=== PATIENT | male | born 2000 | race Caucasian/White ===

== ENCOUNTER 2020-10-28 06:00 | Day surgery (SDC) | payer BC, SELFPAY ==
[~2020-10-28] VITALS: Ht 177.8 cm; Wt 74.8 kg
[2020-10-28] MEDS ORDERED: MEPERIDINE HCL/PF 25 MG/ML DISP.SYRIN IVP PRN (08:00)
[2020-10-28] MEDS ORDERED: ONDANSETRON HCL 4 MG/2 ML VIAL IVP PRN (08:00)
[2020-10-28] MEDS ORDERED: HYDROmorphone 1 MG INJ. 1 MG/ML AMPUL IVP PRN (08:00)
[2020-10-28] MEDS ORDERED: LR 1,000 ML IV SCH (08:00)
[2020-10-28] MEDS ORDERED: POLYMYXIN 500,000/BACIT.10,000 UNITS in NS IRR 1 L IR ONE (09:04)
[2020-10-28] MEDS ORDERED: THROMBIN (BOVINE) 5000 UNITS/ VIAL TP ONE ×2 (09:15→09:19)
[2020-10-28] MEDS ORDERED: HYDROcodone/ACETAMIN 5-325 MG TAB (NORCO/ VICODIN) PO PRN (09:45)
[2020-10-28] MEDS ORDERED: LIDOCAINE/EPI 1% 1:100000 20 ML VIAL INJ ONE (09:55)
[2020-10-28] MEDS ORDERED: fentaNYL CITRATE/PF 100 MCG/2 ML AMP ONE (09:55)
[2020-10-28] MEDS ORDERED: SEVOFLURANE 15 MIN GAS INH ONE (09:55)
[2020-10-28] MEDS ORDERED: DEXAMETHASONE SOD PHOSPHATE 4 MG/ML VIAL ONE (09:55)
[2020-10-28] MEDS ORDERED: MIDAZOLAM HCL 5 MG/ML VIAL (VERSED) IV ONE (09:55)
[2020-10-28] MEDS ORDERED: PROPOFOL 200MG/ 20ML VIAL (DIPRIVAN) IV ONE (09:55)
[2020-10-28] MEDS ORDERED: LR 1,000 ML IV.SOLN IV ONE (09:55)
[2020-10-28] MEDS ORDERED: MEPERIDINE HCL/PF 100 MG/ML AMP ONE (09:55)
[2020-10-28] MEDS ORDERED: NS IRRIG SOLN 1000 ML IR ONE (09:55)
[2020-10-28] MEDS ORDERED: SUCCINYLCHOLINE CHLORIDE 20 MG/ML(QUELICIN) ONE (09:55)
[2020-10-28] MEDS ORDERED: CEFAZOLIN 1 GM IVPB PREMIX 50 ML IV ONE (09:55)
[2020-10-28] MEDS ORDERED: ONDANSETRON HCL 4 MG/2 ML VIAL ONE (09:55)
[2020-10-28] MEDS ORDERED: BACITRACIN 1 GM OINT TP ONE (09:55)
[2020-10-28 11:05] VITALS: BP_SYST 108
== END 2020-10-28 14:20 | disposition home or self-care (01) ==
LOC: SDS 06:00 → SMU 06:00 → SDS 14:20
PROVIDERS: ATTEND Otolaryngology Plastic Surgery within the Head & Neck
DX: Q18.0 Sinus, fistula and cyst of branchial cleft (principal); Z20.828 Contact with and (suspected) exposure to other viral communicable diseases
CPT/HCPCS: 42815; 88305; C1782; J0330; J0690; J1100; J2175; J2250; J2405; J2704; J3010; J7120; U0003